=== PATIENT | male | born 1980 | race Caucasian/White ===

== ENCOUNTER → 2018-03-08 | Outpatient (CLI) | payer OTHER ==
[~2018-03-08] MED LIST: CLONAZEPAM OR; DEPAKOTE500 MG PO; FLONASE 0.05%50 MCG NS; SEROQUEL; STRATTERA60 MG PO; ZOCOR
== END ==
LOC: RAD 12:31
DX: R76.11 Nonspecific reaction to tuberculin skin test without active tuberculosis (principal)

== ENCOUNTER 2021-03-03 09:46 | Emergency (ER) | payer OTHER ==
[~2021-03-03] VITALS: Ht 182.9 cm; Wt 104.3 kg
[2021-03-03 09:53] VITALS: BP 140/81
== END 2021-03-03 10:54 | disposition home or self-care (01) ==
LOC: ER 09:46
DX: Z04.1 Encounter for examination and observation following transport accident (principal); Z79.899 Other long term (current) drug therapy; V57.6XXA Passenger in pick-up truck or van injured in collision with fixed or stationary object in traffic accident, initial encounter; Y93.89 Activity, other specified; Y92.89 Other specified places as the place of occurrence of the external cause; Y99.8 Other external cause status

== ENCOUNTER 2021-03-31 15:44 | Inpatient (IN) | payer OTHER ==
[~2021-03-31] VITALS: Ht 172.7 cm; Wt 89.2 kg
[2021-03-31 15:47] VITALS: BP 134/95
[2021-03-31 16:37] LABS: ABSOLUTE NEUTROPHILS 9.9 thou/uL (1.4-8.2); BASOPHILS 0.3 % (0.0-2.0); HEMATOCRIT 49.2 % (42.0-52.0); HEMOGLOBIN 16.7 gm/dL (14.0-18.0); MCH 31.6 pg (26.0-34.0); MCHC 33.9 g/dL (28.0-37.0); MCV 93.1 fL (80.0-100.0); MONOCYTES 6.3 % (1.0-8.0); PLATELET COUNT 278 thou/uL (150-400); POLYS 84.4 % (36.0-66.0); RBC 5.29 mil/uL (4.50-6.00); RDW 13.5 % (10.5-14.5); WBC 11.8 thou/uL (4.0-11.0)
[2021-03-31 16:48] LABS: CALCIUM 9.6 mg/dL (8.5-10.1); CREATININE 1.5 mg/dL (0.7-1.3); POTASSIUM 4.8 mmol/L (3.5-5.1)
[2021-03-31 16:55] LABS: TOTAL BILIRUBIN 0.5 mg/dL (0.2-1.0); TOTAL PROTEIN 9.1 g/dL (6.4-8.2)
[2021-03-31] MEDS ORDERED: DEPAKOTE ER500 M1 PO ×2 (19:58)
[2021-03-31] MEDS ORDERED: DULCOLAX STOOL100 M1 PO (19:58)
[2021-03-31] MEDS ORDERED: FLONASE 0.05%50 MCG NARES (19:59)
[2021-03-31] MEDS ORDERED: DAILY VALUE1 EAC1 PO (19:59)
[2021-03-31] MEDS ORDERED: LORATIDINE 10 M10 M1 PO (19:59)
[2021-03-31] MEDS ORDERED: MIRALAX119 GM PO (19:59)
[2021-03-31] MEDS ORDERED: SEROQUEL400 MG PO (20:00)
[2021-03-31] MEDS ORDERED: SIMVASTATIN80 MG PO (20:00)
[2021-03-31] MEDS ORDERED: QUETIAPINE FUM200 M1 PO (20:00)
[2021-03-31] MEDS ORDERED: FLORANEX TABLE1 EACH PO (20:00)
[2021-03-31] MEDS ORDERED: CLONAZEPAM 0.50.5 M1 PO (20:01)
[2021-04-01 00:52] LABS: URINE BILIRUBIN NEGATIVE (Negative); URINE BLOOD TRACE (Negative); URINE CLARITY CLEAR; URINE COLOR YELLOW; URINE GLUCOSE-RANDOM* NEGATIVE (Negative); URINE KETONES NEGATIVE (Negative); URINE LEUKOCYTES-REFLEX NEGATIVE (Negative); URINE NITRITE-REFLEX NEGATIVE (Negative); URINE PROTEIN (DIPSTICK) NEGATIVE (Negative); URINE SPECIFIC GRAVITY 1.015 (1.005-1.035); URINE UROBILINOGEN 0.2 E.U./dl (0.2-1.0)
[2021-04-01 06:07] LABS: HEMATOCRIT 35.3 % (42.0-52.0); MCHC 34.3 g/dL (28.0-37.0); MCV 93.3 fL (80.0-100.0); RBC 3.79 mil/uL (4.50-6.00); RDW 13.4 % (10.5-14.5)
[2021-04-01 06:15] VITALS: BP 106/67
[2021-04-01 06:16] LABS: HEMOGLOBIN 12.1 gm/dL (14.0-18.0)
[2021-04-01 06:22] LABS: CREATININE 0.8 mg/dL (0.7-1.3)
[2021-04-01 06:25] LABS: CALCIUM 7.4 mg/dL (8.5-10.1); POTASSIUM 3.4 mmol/L (3.5-5.1)
[2021-04-01 07:12] VITALS: BP 106/67
[2021-04-01 07:45] VITALS: BP 118/78
--- NOTE | 2021-04-01 09:20 | NUR ---
ASSESSMENT: CM REVIEWED CHART AND SPOKE WITH PATIENT AND HIS CAREGIVER AT THE BEDSIDE. PT IS ADMITTED DUE TO LIKELY COLITIS/SEPSIS FROM HIS SKILLED NURSING [facility]. PT HAS HX OF AUTISM AND HIS MOTHER OMAR BELL [phone] IS HIS LEGAL GUARDIAN. CM SPOKE WITH HER AND UPDATED HER. CM ALSO SPOKE WITH WEALTH MANAGEMENT CONSULTANT KODY CLARISSA [phone] TO UPDATE AND HE REQUESTED CLINICAL BE FAXED TO HIM AT [phone], CM SENT. PT IS NORMALLY INDEPENDENT WITH ADLS AND AMBULATION. GI HAS BEEN CONSULTED TO SEE PATIENT AND STOOLS ARE BEING TESTED FOR CDIFF. PLANS WILL BE FOR PATIENT TO RETURN TO HIS SKILLED NURSING ONCE MEDICALLY STABLE. CM WILL CONTINUE TO FOLLOW TO ASSIST NEEDED.
[2021-04-01 14:45] VITALS: BP 123/80
--- NOTE | 2021-04-01 15:10 | NUR ---
PT ADMITTED THIS AM, ALERT TO SELF AND PLACE, HISTORY OF AUTISM. PT LIVES IN A CORRECTION NAD HAS A 24H CAREGIVER. PT DENIES ANY ABDOMINAL PAIN AND LOOK COMFORTABLE RESTING. IV FLUIDS RUNNING PER ORDER. PT ORIENTED TO ROOM. ASSESSMENT AND ADMISSION COMPLETED. NO SKIN ISSUES NOTED. ON CLEAR LIQUID DIET, TOLERATED IT WELL, NO SIGNS OF NAUSEA AND VOMITTING. UP TO BATHRROM WITH [address] ASSIST[address] F[address] PRE[address]UTIONS IN PLACE. CONTACT ISOLATION FOR PENDING C.DIF RESULTS. DEENIES ANY NEEDS AT MOMENT. WILL CONTINUE TO MONITOR
[2021-04-01 22:40] VITALS: BP 137/78
--- NOTE | 2021-04-02 07:26 | NUR ---
UPON SHIFT ASSESSMENT, PT AOX4, RESPONDING TO ORIENTATION PROMPTS APPROPRIATELY. PT WITH FORGETFULNESS AND VERBAL RESTLESSNESS. PT TOLERATING PO INTAKE OF FLUIDS AND CLEAR LIQUID DIET WITHOUT ISSUE, NPO AT MIDNIGHT. PT INCONTINENT OF BOWEL AND BLADDER. PT AMBULATING WITH X1 ASSIST, TRANSFERS BETWEEN CHAIR AND BED. SENSATION INTACT, CAPILLARY REFILL LESS THAN 3SEC, PERIPHERAL PULSES PALPABLE IN ALL EXTREMITIES. PT REFUSING HS MEDICATION, PT MOTHER NOTIFIED, EXPRESSING CONSENT WITH IV/IM MEDICATIONS FOR BEHAVIOR MANAGEMENT. ONCALL HYDROELECTRIC OPERATOR NOTIFIED, EMAR UPDATED. PT GIVEN ONETIME IM HALDOL WITH POSITIVE EFFECT, PT REDIRECTABLE THROUGHOUT THE NIGHT. UPON ROUNDING, PT NOTED TO HAVE EXPIRATORY WHEEZING AND SOB WITH EXERTION, FLUIDS STOPPED, ONCALL HYDROELECTRIC OPERATOR NOTIFIED, ADVISED TO KEEP FLUIDS OFF AND MONITOR PT STATUS. PT REFUSING MORNING MEDICATIONS, PT MOTHER NOTIFIED, EXPRESSING ANTICIPATION OF VISITING TO PROMOTE MEDICATION COMPLIANCE. PT ENCOURAGED TO NOTIFY STAFF FOR ALL NEEDS, CALL LIGHT WITHIN REACH, BED/CHAIR ALARM ON, BED/CHAIR LOCKED IN LOWEST POSITION, ROOM REMAINS NEAR NURSES STATION, FREQUENT MONITORING WILL CONTINUE.
[2021-04-02 08:38] VITALS: BP 131/97
--- NOTE | 2021-04-02 12:28 | NUR ---
on-going assessment: CM REVIEWED CHART AND MET WITH PATIENT AND HIS MOTHER/LEGAL GUARDIAN OMAR AT THE BEDSIDE. PT REMAINS ON CLEARS AND POSSIBLE NEED FOR COLONOSCOPY AND UNSURE WHEN THIS WILL BE SCHEDULED. CM UPDATED PATIENTS LONG TERM ([facility]) COLLAR PACKER VICTORIADimple ROMO [phone]. HE REQUEST TO BE CONTACTED ONCE PATIENT IS STABLE FOR DISCHARGE. PTS MOTHER/LEGAL GUARDIAN MUST BE CONTACTED AND NOTIFIED OF DISCHARGE WELL OMAR [phone]. FAX FOR [facility] IS [phone] AND THEY WILL NEED ALL DISCHARGE PAPERWORK SENT TO THEM AND WILL LIKELY ARRANGE HIS TRANSPORTAION. CM WILL CONTINUE TO FOLLOW TO ASSIST NEEDED.
[2021-04-02 12:31] VITALS: BP 131/97
--- NOTE | 2021-04-02 16:08 | NUR ---
BPCI letter and preferred provider list provided to patient and family, patient lives in prison setting
[2021-04-02 16:24] VITALS: BP 149/91
--- NOTE | 2021-04-02 18:25 | NUR ---
Assumed pt care at 7am.Pt in bed alert and oriented to self.Assessment completed.vss.Pt took meds with assist of healthcare account manager. Dr Elder here wanted this rn call Dr Gonzáles regarding pt scheduled for colonoscopy.Office called and message left.Pt parents here to visit from 10am till 1600. Pt mom signed all admission papers.Pt has 2 bm this shift and also took shower early this shift. Pt in chair resting with healthcare account manager at bs.No verbal c/o.Will continue to monitor.
[2021-04-02 20:40] VITALS: BP 124/64
--- NOTE | 2021-04-03 02:14 | NUR ---
PT IS A/O X2 AND IS UP WITH SBA TO THE BR. PT IS ON ROOM AIR. VSS. AFEBRILE. INCONTINENT OF BOWEL AND BLADDER. SHOWER GIVEN WITH ASSISTANCE THIS NOC. IMPULSIVE AT TIMES. IN ROOM NEAR NURSES STATION WITH FREQUENT CHECKS. FALL PRECAUTIONS IN PLACE, CALL LIGHT IS WITHIN REACH. WILL CONTINUE TO MONITOR.
[2021-04-03 08:49] VITALS: BP 117/66
[2021-04-03 15:37] VITALS: BP 131/74
--- NOTE | 2021-04-03 19:43 | NUR ---
Patient alert and orinted x2, on room air, up with SBA, incontinent of bowel and bladder (not patients normal per cargivers he can state when he needs to go to the bathroom), RN re-educated patient with caregivers reenforcement to call out when needing to use the restroom, tolerating clear liquid diet well, no nausea or pain, patient did not take morning medications even with encouragment from RN and caregivers that were present in the room this morning, vital signs stable, and afbriele. Call light with in reach. Will continue to monitor.
[2021-04-03 20:40] VITALS: BP 133/88
--- NOTE | 2021-04-04 02:19 | NUR ---
PT WAS OBSERVED LYING DOWN ON HIS BED WITH HIS EYES ON THE TV AT SHIFT CHANGE.PT'S CUSTOMER SERVICER IN THE ROOM WITH HIM TILL 8PM.PT INCONT OF B&B,NOT ABLE TO NOTIFY STAFF WHEN HE NEEDS TO GO.COMPLETE BED CHANGE DONE X2,CONDOM CATH PUT IN .PT LATER PULLED THE CONDOM CATH OUT.HS MEDS CRUSHED SINCE PT HAS A HX OF REF MEDS.PT CONT ON CLEAR LIQUIDS,YAZ WELL.PT CONT ON IVF AND IV ABX.PT SLEEPING AT THIS TIME.CALL LIGHT WITHIN REACH.
[2021-04-04 05:06] LABS: ABSOLUTE NEUTROPHILS 2.3 thou/uL (1.4-8.2); BASOPHILS 0.8 % (0.0-2.0); HEMATOCRIT 38.2 % (42.0-52.0); HEMOGLOBIN 13.1 gm/dL (14.0-18.0); LYMPHOCYTES 44.2 % (24.0-44.0); MCH 31.8 pg (26.0-34.0); MCHC 34.3 g/dL (28.0-37.0); MCV 92.6 fL (80.0-100.0); MONOCYTES 12.6 % (1.0-8.0); PLATELET COUNT 233 thou/uL (150-400); POLYS 40.4 % (36.0-66.0); RBC 4.13 mil/uL (4.50-6.00); RDW 13.4 % (10.5-14.5); WBC 5.7 thou/uL (4.0-11.0)
[2021-04-04 06:25] LABS: ALBUMIN 2.9 g/dL (3.4-5.0); CALCIUM 8.3 mg/dL (8.5-10.1); CREATININE 0.7 mg/dL (0.7-1.3); MAGNESIUM 2.3 mg/dL (1.8-2.4); PHOSPHORUS 4.3 mg/dL (2.5-4.9); POTASSIUM 3.3 mmol/L (3.5-5.1); TOTAL BILIRUBIN 0.4 mg/dL (0.2-1.0); TOTAL PROTEIN 6.6 g/dL (6.4-8.2)
[2021-04-04 07:05] VITALS: BP 122/83
[2021-04-04 15:15] VITALS: BP 122/82
--- NOTE | 2021-04-04 19:02 | NUR ---
Assumed care of pt at 1100. Caregiver at bedside. Colonoscopy scheduled for tomorrow. Pt refuses to drink bowel prep and refuses suppository. Report given to sherie MARSHALL.
[2021-04-04 20:15] VITALS: BP 134/83
--- NOTE | 2021-04-05 07:36 | NUR ---
PT AMBULATING TO BATHROOM WITH ASSIST OF ONE AND IS TOLERATING FAIR. DENIES PAIN. REFUSED ALL EVENING AND MORNING MEDS INCLUDING IVF--ANTIBIOTICS--FLAGYL. WHEN I ATTEMPTED TO REATTACH IVF HE PUNCHED MY ARM. HE DID NOT SLEEP ENTIRE SHIFT. DID HAVE ONE EPISODE OF INCONTINENCE. OTHERWISE STAYED IN BED. FREQUENT OBSERVATION.
[2021-04-05 08:17] VITALS: BP 139/79
[2021-04-05 10:22] LABS: ABSOLUTE NEUTROPHILS 5.5 thou/uL (1.4-8.2); BASOPHILS 0.4 % (0.0-2.0); HEMATOCRIT 46.5 % (42.0-52.0); MCH 31.8 pg (26.0-34.0); MCHC 33.8 g/dL (28.0-37.0); MCV 94.1 fL (80.0-100.0); MONOCYTES 12.5 % (1.0-8.0); POLYS 56.1 % (36.0-66.0); RBC 4.94 mil/uL (4.50-6.00); RDW 13.2 % (10.5-14.5); WBC 9.7 thou/uL (4.0-11.0)
[2021-04-05 10:24] LABS: CALCIUM 9.7 mg/dL (8.5-10.1); MAGNESIUM 2.5 mg/dL (1.8-2.4)
[2021-04-05 10:30] LABS: HEMOGLOBIN 15.7 gm/dL (14.0-18.0); PLATELET COUNT 343 thou/uL (150-400)
--- NOTE | 2021-04-05 11:29 | NUR ---
Assumed care of pt at 0700. Refusing to take any meds PO and IV. Refused bowel prep for colonoscopy yesterday and did not have any bowel movements over night. GI provider and hospital doctor notified. Bowel prep medicine reordered. Pt's family and pt's caregiver will try to encourage patient to drink medication. On CL diet. IVF infusing. Family at bedside. Will continue to monitor.
--- NOTE | 2021-04-05 11:49 | NUR ---
ON-GOING ASSESSMENT: CM REVIEWED CHART AND SPOKE WITH ATTENDING. PLANS ARE TO PREP PATIENT FOR LIKELY COLONOSCOPY TOMORROW. CM UPDATED COZ THE CLERICAL DENTIST ASSISTANT At [facility] AND FAXED UPDATED CLINICAL. CM WILL CONTINUE TO FOLLOW TO ASSIST NEEDED.
--- NOTE | 2021-04-05 16:47 | NUR ---
Assumed care from JOANNA Xiao at 1300. Received awake, sitting in the recliner. With family at bedside. On MS, not on telemetry; no complains and signs of chest pain, crushing sensation and heaviness. Assisted in ADLs. Vital signs stable. On clear liquid diet- tolerating well; no nausea, no vomiting and abdominal pain noted. Pt encouraged to drink bowel prep; RN, caregiver and family members encouraging patient to finish bowel prep. Falls bundle in place. With on and off incontinence; able to go to the toilet and urinate. With NS at 50cc/hr, infusing well at L AC; ongoing IV KCL correction 1 out of 2 bags; on IV antibiotics as well. Hooked 2nd bag of KCL this PM; tolerating well. Possible colonoscopy tomorrow if able to tolerate bowel prep; FAUSTO Benoit went to seen pt this PM. No complains of pain made during assessment. To continue monitoring patient.
[2021-04-05 17:58] VITALS: BP 157/91
[2021-04-05 19:34] VITALS: BP 144/99
--- NOTE | 2021-04-06 04:38 | NUR ---
UPON SHIFT REPORT, PT ASSESSED WITH INCONTINENCE OF BOWEL, STOOLS LIQUID BROWN. BOWEL PREP FINISHED PRIOR TO START OF SHIFT, PROVIDER NOTES REVIEWED, PT PRESUMED NPO AT MIDNIGHT DUE TO ANTICIPATION OF COLONOSCOPY PROCEDURE. PT AOX4, RESPONDING TO ORIENTATION PROMPTS APPROPRIATELY. PT WITH FORGETFULNESS AND VERBAL RESTLESSNESS. PT INTERMITTENTLY REPORTING BACK PAIN, RESOLVED WITH REPOSITIONING. PT REMAINS ON ROOM AIR WITHOUT DESATURATIONS. PT REFUSING PO MEDICATIONS, BECOMING AGGRESSIVE WITH IV MEDICATIONS. PT DIFFICULT TO REDIRECT AND REASSURE IN REGARDS TO MEDICATION ADMINISTRATION. PT TOLERATING PO INTAKE OF FLUIDS AND CLEAR LIQUIDS WITHOUT ISSUE, PT WITHOUT NAUSEA OR EMESIS. PT AMBULATING BETWEEN CHAIR AND BED WITH X1 ASSIST, VOIDING PER URINAL. PT NOTED TO BE GUARDED WITH PERICARES. PT ENCOURAGED TO NOTIFY STAFF FOR ALL NEEDS, CALL LIGHT WITHIN REACH, BED ALARM ON, BED LOCKED IN LOWEST POSITION, ROOM REMAINS NEAR NURSES STATION, FREQUENT MONITORING WILL CONTINUE.
[2021-04-06 04:52] VITALS: BP 128/74
--- NOTE | 2021-04-06 12:01 | NUR ---
Assumed care of pt at 0700. Denies pain. Scheduled for colonoscopy today. Family and caregiver aware. Incontinent. Frequent rounding. Fall precautions in place. Will continue to monitor.
--- NOTE | 2021-04-06 13:50 | NUR ---
ON-GOING ASSESSMENT: CM REVIEWED CHART AND SPOKE WITH ATTENDING. PLANS ARE FOR COLONOSCOPY TODAY AND LIKELY DISCHARGE BACK TO HIS CORRECTION TOMORROW. PT IS A BPCI PATIENT BUT WILL LIKELY HAVE NO NEEDS AT DISCHARGE. CM LEFT VM WITH MANAGEMENT INSTRUCTOR KODY AT [facility] [place] TO UPDATE OF POSSIBLE DISCHARGE TOMORROW AND FAXED UPDATED CLINICAL. CM WILL CONTINUE TO FOLLOW TO ASSIST NEEDED.
[2021-04-06 15:31] VITALS: BP 131/97
[2021-04-06 15:34] VITALS: BP 131/97
--- NOTE | 2021-04-06 15:46 | NUR ---
ON-GOING ASSESSMENT: CM REVIEWED CHART AND SPOKE WITH ATTENDING. PT HAD COLONOSCOPY COMPLETED TODAY AND WAS CLEARED TO DISCHARGE BACK TO HIS [facility] TODAY. CECI SPOKE WITH KODY ROMO THE ADDICTION SOCIAL WORKER WHO REPORTS THEY CAN ACCEPT HIM TODAY AND TO JUST FAX THE DISCHARGE PAPERWORK AND THEY DO NOT NEED A CHART COPY. CM FAXED D/C PAPERWORK AND CONFIRMED THEY RECEIVED IT. CM SPOKE WITH PATIENTS MOTHER OMAR/LEGAL GUARDIAN WHO IS AGREEABLE WITH PLAN AND AMIRA FROM THE [facility] DRIVING HIM BACK THERE. CM NOTIFIED COZ AND AGREEABLE WITH PLANS FOR DISCHARGE TODAY. CM NOTIFIED BEDSIDE RN AND NO NEED TO CALL REPORT PER KODY THE ADDICTION SOCIAL WORKER. CASE CLOSED.
--- NOTE | 2021-04-07 15:34 | P ---
Formerly [facility] [place] [address] PROCEDURE REPORT Name: MIKA SHERIDAN Room #: 446-P [facility] IN M.R.#: [id number] Admission: 03/31/21 Attend Phys: Yobani Elder MD Discharge: 04/06/21 Date of : 76 Report #: [id number] THIS REPORT FOR: cc: FAM - Family physician unknown FAM - Family physician unknown Maury Prince MD ~ DOC #: [id number] cc: MD Maury Shin MD DATE OF SERVICE: 04/06/2021 PROCEDURE PERFORMED: Colonoscopy with biopsies. HISTORY OF PRESENT ILLNESS: The patient is a 41-year-old male who is autistic, who was admitted for abdominal pain and chronic constipation. He receives MiraLax on a daily basis. No previous history of endoscopy. He also had nausea and vomiting at the time of arrival. A CT scan of the abdomen and pelvis was performed on 03/31/2021, which showed an irregularity of the rectosigmoid colon and multifocal thickening of the sigmoid colon, there was a shelf-like narrowing of the rectosigmoid junction with moderate mucosal edema of the sigmoid colon. This could represent a colitis, underlying neoplasm or stricture is possible. Followup colonoscopy recommended. Plan is for colonoscopy today. Per the patient's mother, he does have a family history of colon cancer in a grandfather. DESCRIPTION OF PROCEDURE: The risks and benefits of the procedure were explained to the patient's parents, those risks including but not limited to bleeding, perforation and the risk of sedation. They understood these risks and gave informed consent. Sedation was given using propofol per anesthesia. Next, a digital rectal exam was initially performed, which was normal. Next, using a standard Olympus colonoscope, the scope was placed in the patient's anus and advanced under direct vision to the cecum. The overall prep was good. The cecum and ileocecal valve were normal in appearance. The ascending, transverse, and descending colon were all normal other than that it was somewhat dilated, consistent with chronic constipation. No evidence of colitis. In the sigmoid colon, a 4 mm sessile polyp was noted. This was removed with cold forceps. There was no evidence of mass or abnormality in the rectosigmoid region nor in the rectum, the mucosa was normal. On retroflexion, no abnormalities were noted. The scope was then withdrawn and the procedure terminated. The patient tolerated the procedure well. IMPRESSION: 1. Small sigmoid colon polyp. 2. Otherwise, normal colonoscopy. [address] [address] PROCEDURE REPORT Name: MIKA SHERIDAN Room #: 446-P [facility] IN M.R.#: [id number] Admission: 03/31/21 Attend Phys: Yobani Elder MD Discharge: 04/06/21 Date of : 76 Report #: [id number] RECOMMENDATIONS: 1. Await biopsy results. 2. Repeat colonoscopy in 5 years. 3. Continue daily MiraLax. Thank you for allowing me to participate in his care. Maury Prince MD CCM/SEE/ERASMO <ELECTRONICALLY SIGNED> By: Maury Prince MD 04/07/21 1534 [id number] [id number] Maury Prince MD /nt
--- NOTE | 2021-04-12 12:06 | PATH ---
[facility] [address] [place] [address] PATHOLOGY RPT PROCEDURE Name: PRATIK SHERIDAN Room #: 446-P [facility] IN M.R.#: [id number] Admission: 03/31/21 Date of : 76 Discharge: 04/06/21 Report #: [id number] Path Case #: [id number] [facility] Accession Number: [id number] . 01 Material submitted: . sigmoid colon - SIGMOID COLON POLYP . 01 Clinical history: . COLONOSCOPY . 02 Diagnosis: Polyp, sigmoid colon polyp, endoscopic biopsy: - Hyperplastic polyp and a lymphoid aggregate. - Negative for dysplasia or malignancy. (IUV:senior electrical controls engineer; 04/09/2021) MBR 04/09/2021 1357 Local . 02 Electronically signed: . Aysha Cardoza MD, Pathologist NPI- [id number] . 01 Gross description: . Received in formalin labeled "Davin, Pratik, sigmoid colon polyp" are 2 faria-brown soft tissue fragments measuring in aggregate 0.3 x 0.2 x 0.1 cm. The specimen is submitted entirely in A1. (JD; 04/08/2021) JD/JD 04/08/2021 1239 Local . 02 Pathologist provided ICD-10: K63.5 . 02 CPT . 696454 Specimen Comment: A courtesy copy of this report has been sent to [phone], [phone] Specimen Comment: [id number] Specimen Comment: Report sent to / DR POPE Specimen Comment: Report sent to Performed at: [address] [facility], [place], [place] [id number] MD Felipe Ozuna MD Phone: [phone] Performed at: [address] [id number] MD Aysha Cardoza MD Phone: [phone]
== END 2021-04-06 16:33 | DRG 388 ==
LOC: ER 15:44 → 4S 19:14 → EROBS 19:14 → 4S 04-01 07:00
PROVIDERS: Internal Medicine; Nurse Practitioner Family; Physician Assistant; ADMIT Hospitalist; ATTEND Hospitalist
PROC: 0DBN8ZZ Excision of Sigmoid Colon, Via Natural or Artificial Opening Endoscopic (ICD-10-PCS; principal; 2021-04-06)
DX: K56.600 Partial intestinal obstruction, unspecified as to cause (principal); N17.0 Acute kidney failure with tubular necrosis; F90.9 Attention-deficit hyperactivity disorder, unspecified type; K52.9 Noninfective gastroenteritis and colitis, unspecified; E78.5 Hyperlipidemia, unspecified; D12.5 Benign neoplasm of sigmoid colon; K59.00 Constipation, unspecified; E87.6 Hypokalemia; K29.70 Gastritis, unspecified, without bleeding; Z79.899 Other long term (current) drug therapy
CPT/HCPCS: 10100; 10102; 62110; 62900; 70005